=== PATIENT | female | born 1960 ===

== ENCOUNTER 2021-05-31 07:41 | Emergency (ER) | payer MEDICARE ==
[2021-05-31 09:50] LABS: #Basophils 0.1 thou/uL (0.0-0.2); #Eosinphils 0.2 thou/uL (0.0-0.7); #Lymphocytes 2.6 thou/uL (1.20-3.40); #Neutrophils 6.6 thou/uL (1.40-6.50); %Basophils 0.5 % (0.0-1.0); %Lymphocytes 24.7 % (21.0-51.0); %Monocytes 9.3 % (0.0-10.0); %Neutrophils 63.6 % (42.0-75.0); Hemoglobin 14.2 g/dL (12.0-16.0); Mean Corpuscular HGB CONC 33.5 g/dL (32.0-36.0); Mean Corpuscular Hemoglobin 30.4 pg (27.0-31.0); Mean Platelet Volume 6.8 fL (7.4-10.4); Platelet Count 445 thou/uL (130-400); RBC Distribution Width 11.8 % (11.5-14.5); Red Blood Cell (RBC) Count 4.68 mill/uL (4.20-5.40); White Blood Cell (WBC) Count 10.4 thou/uL (4.8-10.8)
[2021-05-31 09:57] LABS: BHCG - Serum Negative (NEGATIVE); Pregs Control Background? CLEAR/WHITE (CLR/WHITE); Pregs Control Bar Appear? YES (CONTROL BAR)
[2021-05-31 10:13] LABS: Acetaminophen Less than 6.0 mcg/mL (10.0-30.0); Alcohol Less than 10 mg/dL (Less than 10); CK (CPK) 76 U/L (29-168); Salicylate Less than 8.0 mg/dL (15.0-30.0)
[2021-05-31 10:14] LABS: ALT (SGPT) 15 U/L (8-55); AST (SGOT) 14 U/L (5-34); Albumin 4.5 g/dL (3.5-5.0); Alkaline Phosphatase 72 U/L (40-110); Anion Gap 14 mmol/L (10-20); BUN (Urea Nitrogen) 8 mg/dL (9.8-20.1); Bilirubin, Total 0.5 mg/dL (0.2-1.2); Calc. Creatinine Clearance 0 mL/min (70-130); Calcium 10.6 mg/dL (7.8-10.44); Carbon Dioxide 26 mmol/L (22-29); Chloride 105 mmol/L (98-107); Globulin 3.2 g/dL (2.4-3.5); Glucose 204 mg/dL (70-105); Potassium 3.1 mmol/L (3.5-5.1); Protein, Total 7.7 g/dL (6.0-8.3); Sodium 142 mmol/L (136-145)
[2021-05-31] MEDS ORDERED: Lorazepam 2 MG/ML VIAL ONE (10:34)
[2021-05-31] MEDS ORDERED: Potassium Chloride 20 MEQ TAB ONE (10:38)
[2021-05-31] MEDS ORDERED: Pot Chloride/Pot Bicarb/Cit Ac 25 mEq Effervescent Tablet ONE (10:38)
== END 2021-05-31 16:56 ==
LOC: ERS 07:41
DX: F32.9 Major depressive disorder, single episode, unspecified (principal); F41.9 Anxiety disorder, unspecified; E11.9 Type 2 diabetes mellitus without complications; Z87.891 Personal history of nicotine dependence; Z79.899 Other long term (current) drug therapy
CPT/HCPCS: 36415; 80053; 80307; 82550; 84443; 84703; 85025; 93005; 96372; J2060